=== PATIENT | male | born 1975 | race American Indian/Alaskan Native ===

== ENCOUNTER 2017-10-10 16:23 | Emergency (ER) | payer OTHER ==
[~2017-10-10] VITALS: Ht 180.3 cm; Wt 156.5 kg
--- OUTSIDE RECORDS SUMMARY | ~2017-10-10 | XMS | Clinical Summary ---
Demographics + + + | Address | [address] | | | [place] [address] | + + + | Home Phone | | + + + | Preferred Language | Unknown | + + + | Marital Status | Unmarried Domestic Partner | + + + | Denominational Affiliation | Unknown | + + + | Race | or | + + + | Ethnic Group | Not or | + + + Author + + + | Author | [facility] | + + + | Organization | [facility] | + + + | Address | Unknown | + + + | Phone | Unavailable | + + + Support +------+ +---------+ + | Name | Relationship | Address | Phone | +------+ +---------+ + ECON | Unknown | | +------+ +---------+ + Care Team Providers + +------+ + | Care Research Home Economist Name | Role | Phone | + +------+ + | No Pcp Per Patient | PP | Unavailable | + +------+ + Source Comments BETZAIDA is fully live on both [facility] Ambulatory and [facility] InPatient.[facility] Allergies Not on File Current Medications Not [...] | + + + Plan of Treatment + + + + + | Health Maintenance | Due Date | Last Done | Comments | + + + + + | INFLUENZA VACCINE | | | | | (FLU SHOT) | 7 | | | + + + + + Results Not on filefrom Last 3 Months"
[~2017-10-10 16:23] MED LIST: BACTRIM DS TAB1 EACH PO; LOSARTAN POTAS100 MG PO; ROSUVASTATIN CA20 MG PO
== END 2017-10-10 18:33 | disposition home or self-care (01) ==
LOC: ED 16:23
DX: S00.93XA Contusion of unspecified part of head, initial encounter (principal); Z79.899 Other long term (current) drug therapy; W22.8XXA Striking against or struck by other objects, initial encounter
CPT/HCPCS: 99283; G0390

== ENCOUNTER 2019-11-09 18:21 | Emergency (ER) | payer OTHER ==
--- OUTSIDE RECORDS SUMMARY | ~2019-11-09 | XMS | Clinical Summary ---
Demographics + + + | Address | [address] | | | [place] [address] | + + + | Home Phone | | + + + | Preferred Language | Unknown | + + + | Marital Status | Unmarried Domestic Partner | + + + | Alevism Affiliation | Unknown | + + + | Race | or | + + + | Ethnic Group | Not or | + + + Author + + + | Author | [facility] | + + + | Organization | [facility] | + + + | Address | Unknown | + + + | Phone | Unavailable | + + + Support + + +---------+ + | Name | Relationship | Address | Phone | + + +---------+ + | Crystal Lina | ECON | Unknown | | + + +---------+ + Care Team Providers + +------+ + | Care Application Technician Name | Role | Phone | + +------+ + | No Pcp Per Patient | PCP | Unavailable | + +------+ + Source Comments BETZAIDA is fully live on both [facility] Ambulatory and [facility] InPatient.[facility] Allergies Not on File Medications Not on file Active Problems Not on file Social History + +-------+ +--------+------+ | Tobacco Use | Types | Packs/Day | Years | Date | | | | | Used | | + +-------+ +--------+------+ | Never Assessed | | | | | + +-------+ +--------+------+ + + + | Sex Assigned at | Date Recorded | | | | + + + | Not on file | | + + + + + + + | Job Start Date | Occupation | Industry | + + + + | Not on file | Not on file | Not on file | + + + + + + + + | Travel History | Travel Start | Travel End | + + + + + + | No recent travel history available. | + + Last Filed Vital Signs Not on file Plan of Treatment + + + + + | Health Maintenance | Due Date | Last Done | Comments | + + + + + | Influenza (Flu) | | | | | vaccination (#1) | 9 | | | + + + + + | Pneumococcal | Aged Out | | No longer eligible | | vaccination | | | based on patient's | | | | | age to complete this | | | | | topic | + + + + + Results Not on filefrom Last 3 Months Insurance + +--------+ +--------+ + +------+ | Payer | Benefi | Subscriber | Effect | Phone | Address | Type | | | t Plan | ID | lissette | | | | | | / | | Dates | | | | | | Group | | | | | | + +--------+ +--------+ + +------+ | BLUE CROSS BLUE | REGENC | xxxxxxxxxxx | 06/26/20 | [phone] | [address] | PPO | | SHIELD | E BCBS | x | 10-Pre | 8 | [id number] | | | | | | sent | | [place], | | | | | | | | [place] | | | | | | | | [address] | | + +--------+ +--------+ + +------+ + +--------+ +--------+ + + | Guarantor Name | Accoun | Relation to | Date | Phone | Billing Address | | | t Type | Patient | of | | | | | | | | | | + +--------+ +--------+ + + | Tod Lyn V | Person | Self | [birth year] | [address] | | | al/Fam | | 1975 | [phone] | [place] [address] | | | miah | | | 0 (Home) | | + +--------+ +--------+ + + | Tod Lyn V | UFC | Self | [birth year] | | [address] | | | [address] | | 1975 | [phone] | [place] [address] | | | g Use | | | 0 (Home) | | | | Only | | | | | + +--------+ +--------+ + +"
--- OUTSIDE RECORDS SUMMARY | ~2019-11-09 | XMS | Encounter Summary ---
Demographics + + + | Address | [address] | | | [place] [address] | + + + | Home Phone | | + + + | Preferred Language | Unknown | + + + | Marital Status | Unmarried Domestic Partner | + + + | Shinto Affiliation | Unknown | + + + | Race | or | + + + | Ethnic Group | Not or | + + + Author + + + | Author | [facility] | + + + | Organization | [facility] | + + + | Address | Unknown | + + + | Phone | Unavailable | + + + Support + + +---------+ + | Name | Relationship | Address | Phone | + + +---------+ + | Crystal Lina | ECON | Unknown | | + + +---------+ + Care Team Providers + +------+ + | Care State Assessed Properties Director Name | Role | Phone | + +------+ + | No Pcp Per Patient | PCP | Unavailable | + +------+ + Encounter Details +--------+ + + + + | Date | Type | Department | Care Team | Description | +--------+ + + + + | 04/23/ | Telephone | [place] | Michael Solomon MD | | | 2011 | | Fertility | [address] | | | | | Consultants at [facility] | [place], [place] | | | | | [address] | [address] | | | | | Mailcode: [facility] | [phone] | | | | | [facility] | | | | | | and Healing, | | | | | | Building | | | | | | Floor [place], [place] | | | | | | [address] | | | | | | [phone] | | | +--------+ + + + + Social History + +-------+ +--------+------+ | Tobacco [...] recent travel history available. | + + documented as of this encounter Plan of Treatment Not on filedocumented as of this encounter Visit Diagnoses Not on filedocumented in this encounter"
--- OUTSIDE RECORDS SUMMARY | ~2019-11-09 | XMS | Encounter Summary ---
Demographics + + + | Address | [address] | | | [place] [address] | + + + | Home Phone | | + + + | Preferred Language | Unknown | + + + | Marital Status | | + + + | Scientology Affiliation | 1009 | + + + | Race | Unknown | + + + | Ethnic Group | Unknown | + + + Author + + + | Author | [facility] | | | and [place] | + + + | Organization | [facility] | | | and [place] | + + + | Address | Unknown | + + + | Phone | Unavailable | + + + Support + + +---------+ + | Name | Relationship | Address | Phone | + + +---------+ + | Fox Juarez | ECON | Unknown | | + + +---------+ + Care Team Providers + +------+ + | Care Spout Liner Helper Name | Role | Phone | + +------+ + PCP | Unavailable | + +------+ + Encounter Details +--------+ + + + + | Date | Type | Department | Care Team | Description | +--------+ + + + + | 07/08/ | Abstract | [facility] | DATA MIGRATION NAE | | | 2011 | | Conversion Location | SR | | | | | [phone] | | | +--------+ + + + [...] + + documented as of this encounter Last Filed Vital Signs + + + + + | Vital Sign | Reading | Time Taken | Comments | + + + + + | Blood Pressure | 116/76 | 06/12/2011 12:00 AM | | | | | PDT | | + + + + + | Pulse | - | - | | + + + + + | Temperature | - | - | | + + + + + | Respiratory Rate | - | - | | + + + + + | Oxygen Saturation | - | - | | + + + + + | Inhaled Oxygen | - | - | | | Concentration | | | | + + + + + | Weight | 180.5 kg (398 lb) | 06/12/2011 12:00 AM | | | | | PDT | | + + + + + | Height | 180.3 cm (5' 11") | 06/12/2011 12:00 AM | | | | | PDT | | + + + + + | Body Mass Index | 55.51 | 06/12/2011 12:00 AM | | | | | PDT | | + + + + + documented in this encounter Plan of Treatment Not on filedocumented as of this encounter Visit Diagnoses Not on filedocumented in this encounter
--- OUTSIDE RECORDS SUMMARY | ~2019-11-09 | XMS | Encounter Summary ---
Demographics + + + | Address | [address] | | | [place] [address] | + + + | Home Phone | | + + + | Preferred Language | Unknown | + + + | Marital Status | | + + + | Anabaptism Affiliation | 1009 | + + + | Race | Unknown | + + + | Ethnic Group | Unknown | + + + Author + + + | Author | [facility] | | | and [place] | + + + | Organization | [facility] | | | and [...] Team Providers + +------+ + | Care Meat Supervisor Name | Role | Phone | + +------+ + PCP | Unavailable | + +------+ + Encounter Details +--------+ + + + + | Date | Type | Department | Care Team | Description | +--------+ + + + + | 11/15/ | Hospital | [facility] | | | | 2008 | Encounter | MED CTR XRAY [address] | | | | | | [place] | | | | | | [place] [address] | | | | | | [phone] | | | +--------+ + + + [...]
--- OUTSIDE RECORDS SUMMARY | ~2019-11-09 | XMS | Encounter Summary ---
Demographics + + + | Address | [address] | | | [place] [address] | + + + | Home Phone | | + + + | Preferred Language | Unknown | + + + | Marital Status | | + + + | Denominational Affiliation | 1009 | + + + | Race | Unknown | + + + | Ethnic Group | Unknown | + + + Author + + + | Author | [facility] | | | and [place] | + + + | Organization | [facility] | | | [...] Team Providers + +------+ + | Care Judicial Law Clerk Name | Role | Phone | + +------+ + PCP | Unavailable | + +------+ + Encounter Details +--------+ + + + + | Date | Type | Department | Care Team | Description | +--------+ + + + + | 12/22/ | Hospital | [facility] GENERIC OP | [place] | [facility]LDER | | 2002 | Encounter | [address] | | | | | [address] | [place] [address] | | | | | [place] | [place] [address] | | | | | [address] | [phone] | | | | | [phone] | | | +--------+ + + + [...] filedocumented as of this encounter Visit Diagnoses + + | Diagnosis | + + | Pain in joint, shoulder region | + + documented in this encounter"
--- OUTSIDE RECORDS SUMMARY | ~2019-11-09 | XMS | Clinical Summary ---
Demographics + + + | Address | [address] | | | [place] [address] | + + + | Home Phone | | + + + | Preferred Language | Unknown | + + + | Marital Status | Single | + + + | Samaritan Affiliation | 1009 | + + + | Race | Unknown | + + + | Ethnic Group | Unknown | + + + Author + + + | Author | [facility] (Historical as of | | | 06-11-19) | + + + | Organization | [facility] (Historical as of | | | 06-11-19) | + + + | Address | Unknown | + + + | Phone | Unavailable | + + + Support + + +---------+ + | Name | Relationship | Address | Phone | + + +---------+ + | Fox Juarez | ECON | Unknown | | + + +---------+ + Care Team Providers + +------+ + | Care Manufacturing Quality Engineer Name | Role | Phone | + +------+ + | Darcy Boone | PP | | + +------+ + Allergies Not on File Current Medications Not on file Active Problems Not [...] on file | | + + + Plan of Treatment Not on file Results Not on filefrom Last 3 Months Insurance + +--------+ +------+-------+---------+ | Payer | Benefi | Subscriber | Type | Phone | Address | | | t Plan | ID | | | | | | / | | | | | | | Group | | | | | + +--------+ +------+-------+---------+ | [employer] | ODS | [id number] | | | | | | HEALTH | | | | | | | PLAN | | | | | + +--------+ +------+-------+---------+ | /[employer] | YELLOW | [id number] | | | | | PLANS | [place] | | | | | + +--------+ +------+-------+---------+ + +--------+ +--------+ + + | Guarantor Name | Accoun | Relation to | Date | Phone | Billing Address | | | t Type | Patient | of | | | | | | | | | | + +--------+ +--------+ + + | TOD LYN V | Person | Self | [birth year] | Home: | [address] | | | al/Fam | | 1975 | [phone] [place] | | | miah | | | [phone] | [address] | + +--------+ +--------+ + +"
--- OUTSIDE RECORDS SUMMARY | ~2019-11-09 | XMS | Encounter Summary ---
Demographics + + + | Address | [address] | | | [place] [address] | + + + | Home Phone | | + + + | Preferred Language | Unknown | + + + | Marital Status | | + + + | Pentecostal Affiliation | 1009 | + + + | Race | Unknown | + + + | Ethnic Group | Unknown | + + + Author + + + | Author | [facility] | | | and [place] | + + + | Organization | [facility] | | | and [...] Team Providers + +------+ + | Care Transportation Sales Consultant Name | Role | Phone | + +------+ + PCP | Unavailable | + +------+ + Encounter Details +--------+ + + + + | Date | Type | Department | Care Team | Description | +--------+ + + + + | 06/23/ | Hospital | [facility] | Franklin Garcia MD | | | 2010 | Encounter | MED CTR GENERIC OP | [address] [facility] | | | | | CONV DEPT [address] | [address], | | | | | [place], | [place] [address] | | | | | [place] [address] | [phone] | | | | | [phone] | | | +--------+ + + + [...] Not on filedocumented as of this encounter Procedures + +--------+ + + + | Procedure Name | Priori | Date/Time | Associated Diagnosis | Comments | | | ty | | | | + +--------+ + + + | BASIC METABOLIC | Routin | 06/23/2011 | | Results for this | | PANEL | e | 11:58 AM | | procedure are in the | | | | PDT | | results section. | + +--------+ + + + documented in this encounter Results Basic Metabolic Panel (06/23/2011 11:58 AM PDT) + + + + + + | Component | Value | Ref Range | Performed | Pathologist | | | | | At | Signature | + + + + + + | Glucose | 123 (H) | 70 - 109 mg/dL | [facility] | | | | | | [facility] | | | | | | [facility]ICAL | | | | | | C[facility] - | | | | | | LABORATORY | | + + + + + + | Calcium | 8.8 | 8.3 - 10.5 | [facility] | | | | | mg/dL | [facility] | | | | | | [facility]ICAL | | | | | | CENTER - | | | | | | LABORATORY | | + + + + + + | BUN | 10 | 7 - 18 mg/dL | [facility] | | | | | | [facility] | | | | | | MEDICAL | | | | | | CENTER - | | | | | | LABORATORY | | + + + + + + | Creatinine | 0.80 | 0.60 - 1.30 | [facility] | | | | | mg/dL | [facility] | | | | | | MEDICAL | | | | | | CENTER - | | | | | | LABORATORY | | + + + + + + | Estimated | >60Comment: For | >60 mL/min/A | [facility] | | | GFR | -Americans, | | [facility] | | | | please multiply the | | MEDICAL | | | | result by 1.210 | | CENTER - | | | | This is an estimated | | LABORATORY | | | | GFR and is based on | | | | | | a standard body | | | | | | mass and serum | | | | | | creatinine | | | | + + + + + + | BUN/Creatin | 12.5 | 12 - 20 | [facility] | | | ine Ratio | | | [facility] | | | | | | MEDICAL | | | | | | CENTER - | | | | | | LABORATORY | | + + + + + + | Na | 137 | 136 - 149 mEq/L | [facility] | | | | | | [facility] | | | | | | MEDICAL | | | | | | CENTER - | | | | | | LABORATORY | | + + + + + + | K | 3.9 | 3.5 - 5.1 mEq/l | [facility] | | | | | | [facility] | | | | | [facility] | | | | | | [facility] - | | | | | | LABORATORY | | + + + + + + | Cl | 104 | 98 - 109 mEq/l | [facility] | | | | | | [facility] | | | | | | MEDICAL | | | | | | CENTER - | | | | | | LABORATORY | | + + + + + + | CO2 | 24 | 24 - 31 mEq/L | [facility] | | | | | | [facility] | | | | | | MEDICAL | | | | | | CENTER - | | | | | | LABORATORY | | + + + + + + | Anion Gap | 12.9 | 6.0 - 17.0 | [facility] | | | | | | [facility] | | | | | | MEDICAL | | | | | | CENTER - | | | | | | LABORATORY | | + + + + + + + + | Specimen | + + | | + + + + + + + | Performing | Address | City/State/Zipcode | Phone Number | | Organization | | | | + + + + + | [facility] | [address] | [place], [place] | [phone] | | [facility] | | [address] | | | - LABORATORY | | | | + + + + + | [facility] | [address] | [place], [place] | | | [facility] | | [address] | | | - LABORATORY | | | | + + + + + documented in this encounter Visit Diagnoses Not on filedocumented in this encounter"
--- OUTSIDE RECORDS SUMMARY | ~2019-11-09 | XMS | Encounter Summary ---
Demographics + + + | Address | [address] | | | [place] [address] | + + + | Home Phone | | + + + | Preferred Language | Unknown | + + + | Marital Status | Unmarried Domestic Partner | + + + | Mandaeism Affiliation | Unknown | + + + | Race | or | + + + | Ethnic Group | Not or | + + + Author + + + | Author | [facility] | + + + | Organization | [facility] | + + + | Address | Unknown | + + + | Phone | Unavailable | + + + Support + + +---------+ + | Name | Relationship | Address | Phone | + + +---------+ + | Crystal Lina | ECON | Unknown | | + + +---------+ + Care Team Providers + +------+ + | Care Disulfurizer Tender Name | Role | Phone | + +------+ + | No Pcp Per Patient | PCP | Unavailable | + +------+ + Encounter Details +--------+ + + + + | Date | Type | Department | Care Team | Description | +--------+ + + + + | 04/15/ | Business Development Executive | [place] | Michael Solomon MD | Special screening | | 2011 | | Fertility | [address] | examination for | | | | Consultants at [facility] | [place], [place] | other specified | | | | [address] | [address] | viral diseases; | | | | Mailcode: CH10F | [phone] | Screening | | | | [facility] | | examination for | | | | and Healing, | | venereal disease; | | | | Building | | Fertility testing | | | | Floor [place], [place] | | | | | | [address] | | | | | | [phone] | | | +--------+ + + + [...] | + +--------+ + + + | SEMEN ANALYSIS | Routin | 04/21/2012 | Fertility testing | Results for this | | CLINICAL REPORT - | e | 7:55 AM | | procedure are in the | | ANDROLOGY LAB | | PDT | | results section. | + +--------+ + + + documented in this encounter Results SEMEN ANALYSIS CLINICAL REPORT - ANDROLOGY LAB (04/21/2012 7:55 AM PDT) + + + + + + | Component | Value | Ref Range | Performed | Pathologist | | | | | At | Signature | + + + + + + | PARTNER | Crystal Pleninger | Cut off normal | [facility] | | | | | values from the | OGY LAB | | | | | WHO 3rd | | | | | | Edition | | | + + + + + + | TIME | 840 | | [facility] | | | COMPLETED | | | OGY LAB | | + + + + + + | VOLUME, | 4 | 2 ml or more | [facility] | | | SEMEN | | | OGY LAB | | + + + + + + | COUNT | 103 | 20 million/ml | [facility] | | | | | or more | OGY LAB | | + + + + + + | MOTILITY % | 68 | 50 % or more | [facility] | | | | | | OGY LAB | | + + + + + + | TOTAL | 280.2 | 20 million or | [facility] | | | MOTILE | | more | OGY LAB | | + + + + + + | FORWARD | 3 | 2 - 4 | [facility] | | | PROGRESSION | | | OGY LAB | | + + + + + + | VISCOSITY, | 1 | 1 - 2 | [facility] | | | SEMEN | | | OGY LAB | | + + + + + + | PH, SEMEN | 8 | 7.2 | [facility] | | | | | | OGY LAB | | + + + + + + | NORMAL | 34 | 30 % or more | [facility] | | | MORPHOLOGY | | | OGY LAB | | | % | | | | | + + + + + + | ROUND CELLS | 2 | hpf | [facility] | | | | | | OGY LAB | | + + + + + + | AGGLUTINATI | 0 | 0 - 1 0=none, | [facility] | | | ON | | 1=mild, | OGY LAB | | | | | 2=significant, | | | | | | 3=severe | | | + + + + + + | ABSTINENCE | 3 | days | [facility] | | | DURATION | | | OGY LAB | | + + + + + + + + | Specimen | + + | Semen | + + + + + + + | Performing | Address | City/State/Zipcode | Phone Number | | Organization | | | | + + + + + | [facility] | [address] | [place] [address] | | | | Tenth Floor | | | + + + + + HEPATITIS C AB W/CONFIRMATION REFLEX PCR (04/21/2012 7:55 AM PDT) + + + + + + | Component | Value | Ref Range | Performed | Pathologist | | | | | At | Signature | + + + + + + | HEPATITIS C | NegativeComment: | Negative | [facility] | | | AB | Reference Range: | | [facility] | | | | Negative | | LABORATORY | | + + + + + + + + | Specimen | + + | Blood - Blood | + + + + + + + | Performing | Address | City/State/Zipcode | Phone Number | | Organization | | | | + + + + + | [facility] | [address] | [place] [address] | | | LABORATORY | | | | + + + + + HEPATITIS B SURFACE AG, SERUM (04/21/2012 7:55 AM PDT) + + + + + + | Component | Value | Ref Range | Performed | Pathologist | | | | | At | Signature | + + + + + + | HEPATITIS B | Negative | Negative | [facility] | | | SURFACE | | | [facility] | | | AG, SERUM | | | LABORATORY | | + + + + + + + + | Specimen | + + | Blood - Blood | + + + + + | Narrative | Performed At | + + + | [facility] | [facility] | | [place] [address] | REGIONAL | | [place] [address] | LABORATORY | + + + + + + + + | Performing | Address | City/State/Zipcode | Phone Number | | Organization | | | | + + + + + | [facility] | [address] | [place] [address] | | | LABORATORY | | | | + + + + + RPR SERUM (04/21/2012 7:55 AM PDT) + + + + + + | Component | Value | Ref Range | Performed | Pathologist | | | | | At | Signature | + + + + + + | RPR SRM | Non-Reactive | | [facility] | | | QUAL | | | [facility] | | | | | | LABORATORY | | + + + + + + + + | Specimen | + + | Blood - Blood | + + + + + | Narrative | Performed At | + + + | [facility] | [facility] | | [place] [address] [facility] | REGIONAL | | [place] [address] | LABORATORY | + + + + + + + + | Performing | Address | City/State/Zipcode | Phone Number | | Organization | | | | + + + + + | [facility] | [address] | [place] [address] | | | LABORATORY | | | | + + + + + HIV-1,2 AB/HIV-1 P24 AG SCRN, SERUM (04/21/2012 7:55 AM PDT) + + + + + + | Component | Value | Ref Range | Performed | Pathologist | | | | | At | Signature | + + + + + + | HIV-1,2 | NonreactiveComment: | | [facility] | | | AB/HIV-1 | Reference Range: | | DEPARTMENT | | | P24 AG | Non-Reactive: | | OF | | | SCREEN | HIV-1 p24 Ag | | PATHOLOGY | | | | and HIV-1,2 Ab | | | | | | | | | | | | not detected. | | | | | | Presumptive Reactive: | | | | | | Presumptive | | | | | | evidence of HIV-1 p24 Ag | | | | | | and/or HIV-1,2 Ab; | | | | | | Sample sent for | | | | | | confirmatory assay. | | | | | | However, the RT-PCR | | | | | | test for HIV is more | | | | | | sensitive and | | | | | | recommended for either | | | | | | confirmation or early | | | | | | detection. | | | | | | Performance has not been | | | | | | established for the use | | | | | | of cadaveric | | | | | | specimens, or the use of | | | | | | body fluids other than | | | | | | human serum or | | | | | | plasma. False | | | | | | positive results may | | | | | | occur in . | | | | + + + + + + + + | Specimen | + + | Blood - Blood | + + + + + + + | Performing | Address | City[facility]State[facility] | Phone Number | | Organization | | | | + + + + + | [facility] | [address] | [place] [address] | | | PATHOLOGY | [address] | | | + + + + + documented in this encounter Visit Diagnoses + + | Diagnosis | + + | Special screening examination for other specified viral diseases | + + | Screening examination for venereal disease | + + | Fertility testing | + + documented in this encounter"
--- OUTSIDE RECORDS SUMMARY | ~2019-11-09 | XMS | Clinical Summary ---
Demographics + + + | Address | [address] | | | [place] [address] | + + + | Home Phone | | + + + | Preferred Language | Unknown | + + + | Marital Status | | + + + | Hoahaoism Affiliation | 1009 | + + + | Race | Unknown | + + + | Ethnic Group | Unknown | + + + Author + + + | Author | [facility] | | | and [place] | + + + | Organization | [facility] | | | [...] Team Providers + +------+ + | Care Supervisor Cartography Name | Role | Phone | + +------+ + PCP | Unavailable | + +------+ + Allergies No Known Allergies Medications + + + +---------+------+------+-------+ | Medication | Sig | Dispensed | Refills | Star | End | Statu | | | | | | t | Date | s | | | | | | Date | | | + + + +---------+------+------+-------+ | METOPROLOL | TABS - ONE DAILY | | 0 | 09/1 | | Activ | | TARTRATE | | | | 4/20 | | e | | | | | | 12 | | | + + + +---------+------+------+-------+ | METFORMIN HCL PO | TABS - TWO DAILY | | 0 | 09/1 | | Activ | | | | | | 4/20 | | e | | | | | | 12 | | | + + + +---------+------+------+-------+ | LISINOPRIL PO | TABS - ONE DAILY | | 0 | 09/1 | | Activ | | | | | | 4/20 | | e | | | | | | 12 | | | + + + +---------+------+------+-------+ | Aspirin (EASPRIN | TBEC - ONE DAILY | | 0 | 09/1 | | Activ | | PO) | | | | 4/20 | | e | | | | | | 12 | | | + + + +---------+------+------+-------+ | Olmesartan | TABS - ONE DAILY | | 0 | 09/1 | | Activ | | Medoxomil (BENICAR | | | | 4/20 | | e | | PO) | | | | 12 | | | + + + +---------+------+------+-------+ | AMOXAPINE | TABS - ONE DAILY | | 0 | 09/1 | | Activ | | | | | | 4/20 | | e | | | | | | 12 | | | + + + +---------+------+------+-------+ | Colesevelam HCl | TABS - SIX DAILY | | 0 | 09/1 | | Activ | | (WELCHOL PO) | | | | 4/20 | | e | | | | | | 12 | | | + + + +---------+------+------+-------+ | LORATADINE PO | TABS - ONE DAILY | | 0 | 09/1 | | Activ | | | | | | 4/20 | | e | | | | | | 12 | | | + + + +---------+------+------+-------+ | FLUTICASONE | CREA - DAILY | | 0 | 09/1 | | Activ | | PROPIONATE EX | | | | 02/12 | | e | | | | | | 12 | | | + + + +---------+------+------+-------+ Active Problems + + + | Problem | Noted Date | + + + | 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
--- OUTSIDE RECORDS SUMMARY | ~2019-11-09 | XMS | Encounter Summary ---
Demographics + + + | Address | [address] | | | [place] [address] | + + + | Home Phone | | + + + | Preferred Language | Unknown | + + + | Marital Status | | + + + | Congregation Affiliation | 1009 | + + + | Race | Unknown | + + + | Ethnic Group | Unknown | + + + Author + + + | Author | [facility] | | | and [place] | + + + | Organization | [facility] | | | [...] Team Providers + +------+ + | Care [place] Manager Name | Role | Phone | + +------+ + PCP | Unavailable | + +------+ + Encounter Details +--------+ + + + + | Date | Type | Department | Care Team | Description | +--------+ + + + + | 09/14/ | Hospital | [facility] | | | | 2005 | Encounter | MED CTR XRAY [address] | | | | | | [address] | | | | | | [place] [address] | | | | | | [phone] | | | +--------+ + + + [...]
--- OUTSIDE RECORDS SUMMARY | ~2019-11-09 | XMS | Encounter Summary ---
Demographics + + + | Address | [address] | | | [place] [address] | + + + | Home Phone | | + + + | Preferred Language | Unknown | + + + | Marital Status | | + + + | Confucianism Affiliation | 1009 | + + + | Race | Unknown | + + + | Ethnic Group | Unknown | + + + Author + + + | Author | [facility] | | | and [place] | + + + | Organization | [facility] | | [...] Team Providers + +------+ + | Care Rib Chopper Name | Role | Phone | + +------+ + PCP | Unavailable | + +------+ + Encounter Details +--------+ + + + + | Date | Type | Department | Care Team | Description | +--------+ + + + + | 09/14/ | Hospital | [facility] | | | | 2005 | Encounter | MED CTR XRAY [address] | | | | | | [address] | | | | | | [place] [address] | | | | | | [phone] | | | +--------+ + + + [...]
--- OUTSIDE RECORDS SUMMARY | ~2019-11-09 | XMS | Clinical Summary ---
Demographics + + + | Address | [address] | | | [place] [address] | + + + | Home Phone | | + + + | Preferred Language | Unknown | + + + | Marital Status | Unmarried Domestic Partner | + + + | Yazdanism Affiliation | Unknown | + + + [...] Team Providers + +------+ + | Care Net Maker Name | Role | Phone | + +------+ + | No Pcp Per Patient | PCP | Unavailable | + +------+ + Source Comments BETZAIDA is fully live on both [facility] Ambulatory and [facility] InPatient.[facility] Allergies Not on File Medications Not on [...] | [facility] | xxxxxxxxxxx | 06/26/20 | [phone] | [address] | PPO | | SHIELD | E BCBS | x | 10-Pre | 8 | [address] | | | | | | sent | | [place], | | | | | | | | [place] | | | | | | | | [address] | | + +--------+ +--------+ + +------+ [...] | 1975 | [phone] | [place] [address] | | | miah | | | 0 (Home) | | + +--------+ +--------+ + + | Tod Lyn V | UFC | Self | [birth year] | [address] | | | [place] | | 1975 | [phone] | [place] [address] | | | g Use | | | 0 (Home) | | | | Only | | | | | + +--------+ +--------+ + +"
--- OUTSIDE RECORDS SUMMARY | ~2019-11-09 | XMS | Encounter Summary ---
Demographics + + + | Address | [address] | | | [place] [address] | + + + | Home Phone | | + + + | Preferred Language | Unknown | + + + | Marital Status | | + + + | Jainism Affiliation | 1009 | + + + | Race | Unknown | + + + | Ethnic Group | Unknown | + + + Author + + + | Author | [facility] | | | and [place] | + + + | Organization | [facility] | | | and [...] Team Providers + +------+ + | Care Faculty Administrator Name | Role | Phone | + +------+ + PCP | Unavailable | + +------+ + Encounter Details +--------+ + + + + | Date | Type | Department | Care Team | Description | +--------+ + + + + | 07/15/ | [facility] | [facility] | Franklin Garcia MD | | | 2010 | Encounter | MED CTR MP INTRA OP | [address] [facility] | | | | | [address] | [address], | | | | | [place] | [place] [address] | | | | | [address] | [phone] | | | | | [phone] | | | +--------+ + + + [...]
--- OUTSIDE RECORDS SUMMARY | ~2019-11-09 | XMS | Encounter Summary ---
Demographics + + + | Address | [address] | | | [place] [address] | + + + | Home Phone | | + + + | Preferred Language | Unknown | + + + | Marital Status | | + + + | Rastafari Affiliation | 1009 | + + + | Race | Unknown | + + + | Ethnic Group | Unknown | + + + Author + + + | Author | [facility] | | | and [place] | + + + | Organization | [facility] | | | and [...] Team Providers + +------+ + | Care Fitness Assistant Name | Role | Phone | + +------+ + PCP | Unavailable | + +------+ + Encounter Details +--------+ + + + + | Date | Type | Department | Care Team | Description | +--------+ + + + + | 12/22/ | Hospital | [facility] GENER[facility] | Cast[place] | JOINT PAIN-SHLDER | | 2002 | Encounter | [address] | [address] | | | | | [address] | [place] [address] | | | | | [place] | [place] [address] | | | | | [address] | [phone] | | | | | [phone] | | | +--------+ + + + [...]
--- OUTSIDE RECORDS SUMMARY | ~2019-11-09 | XMS | Encounter Summary ---
Demographics + + + | Address | [address] | | | [place] [address] | + + + | Home Phone | | + + + | Preferred Language | Unknown | + + + | Marital Status | | + + + | Amish Affiliation | 1009 | + + + | Race | Unknown | + + + | Ethnic Group | Unknown | + + + Author + + + | Author | [facility] | | | and [place] | + + + | Organization | [facility] | | [...] Team Providers + +------+ + | Care Melter Supervisor Electric Arc Furnace Name | Role | Phone | + +------+ + PCP | Unavailable | + +------+ + Encounter Details +--------+ + + + + | Date | Type | Department | Care Team | Description | +--------+ + + + + | 07/15/ | [facility] | [facility] | Franklin Garcia MD | | | 2010 | Encounter | MED CTR MP INTRA OP | [address] [facility] | | | | | [address] | [address], | | | | | [place] | [place] [address] | | | | | [address] | [phone] | | | | | [phone] | | | +--------+ + + + [...]
--- OUTSIDE RECORDS SUMMARY | ~2019-11-09 | XMS | Encounter Summary ---
Demographics + + + | Address | [address] | | | [place] [address] | + + + | Home Phone | | + + + | Preferred Language | Unknown | + + + | Marital Status | Unmarried Domestic Partner | + + + | Gnosticist Affiliation | Unknown | + + + | Race | or | + + + | Ethnic Group | Not or | + + + Author + + + | Author | [facility] [facility] | + + + | Organization | [facility] | + + + | Address | Unknown | + + + | Phone | Unavailable | + + + Support + + +---------+ + | Name | Relationship | Address | Phone | + + +---------+ + | Crystal Lina | ECON | Unknown | | + + +---------+ + Care Team Providers + +------+ + | Care Director Of Video Analytics Name | Role | Phone | + +------+ + | No Pcp Per Patient | PCP | Unavailable | + +------+ + Encounter Details +--------+ + + + + | Date | Type | Department | Care Team | Description | +--------+ + + + + | 04/23/ | Telephone | [facility] | Michael Solomon MD | | | 2011 | | Fertility | [address] | | | | | Consultants at [facility] | [place], [place] | | | | | [address] | [address] | | | | | Mailcode: [facility] | [phone] | | | | | [facility] | | | | | | and Healing, | | | | | | Building | | | | | | Floor [place], [place] | | | | | | [address] | | | | | | [phone] | | | +--------+ + + + [...]
--- OUTSIDE RECORDS SUMMARY | ~2019-11-09 | XMS | Encounter Summary ---
Demographics + + + | Address | [address] | | | [place] [address] | + + + | Home Phone | | + + + | Preferred Language | Unknown | + + + | Marital Status | Unmarried Domestic Partner | + + + | Bahai Affiliation | Unknown | + + + | Race | or | + + + | Ethnic Group | Not or | + + + Author + + + | Author | [facility] | + + + | Organization | [facility] | + + + | Address | Unknown | + + + | Phone | Unavailable | + + + Support + + +---------+ + | Name | Relationship | Address | Phone | + + +---------+ + | Crystal Lina | ECON | Unknown | | + + +---------+ + Care Team Providers + +------+ + | Care Central Supply Aide Name | Role | Phone | + +------+ + | No Pcp Per Patient | PCP | Unavailable | + +------+ + Encounter Details +--------+------+ + + + | Date | Type | Department | Care Team | Description | +--------+------+ + + + | 04/21/ | Lab | Laboratory at [facility] | | Special screening | | 2011 | | [address] | | examination for | | | | [place], [place] | | other specified | | | | [address] | | viral diseases; | | | | [phone] | | Screening | | | | | | examination for | | | | | | venereal disease | +--------+------+ + + + Social History + +-------+ [...] | + +--------+ + + + | HIV-1,2 AB/HIV-1 P24 | Routin | 04/21/2012 | Special screening | Results for this | | AG SCRN | e | 7:55 AM | examination for | procedure are in the | | | | PDT | other specified | results section. | | | | | viral diseases | | + +--------+ + + + | RPR SERUM | Routin | 04/21/2012 | Screening | Results for this | | | e | 7:55 AM | examination for | procedure are in the | | | | PDT | venereal disease | results section. | + +--------+ + + + | HEPATITIS B SURFACE | Routin | 04/21/2012 | Special screening | Results for this | | AG, SERUM | e | 7:55 AM | examination for | procedure are in the | | | | PDT | other specified | results section. | | | | | viral diseases | | + +--------+ + + + | HEPATITIS C VIRUS | Routin | 04/21/2012 | Special screening | Results for this | | W/CONFIRMATION | e | 7:55 AM | examination for | procedure are in the | | | | PDT | other specified | results section. | | | | | viral diseases | | + +--------+ + + + documented in this encounter Results HEPATITIS C AB W/CONFIRMATION REFLEX PCR (04/21/2012 [...] + + + | [facility] | [address] | [place] [address] | | | LABORATORY | | | [...] Will | [facility] | | [place] [address] | REGIONAL | | [place] [address] | LABORATORY | + + + + + + + + | Performing | Address | City/State/Zipcode | Phone Number | | Organization | | | | + + + + + | [facility] | [address] | [place] [address] | | | LABORATORY | | | [...] At | + + + | [facility] | [place] | | [place] [address] [address] [facility] | REGIONAL | | [place] [address] | LABORATORY | + + + + + + + + | Performing | Address | City/State/Zipcode | Phone Number | | Organization | | | | + + + + + | [facility] | [address] | [place] [address] | | | LABORATORY | | | [...] | + + + + + | [facility] | [address] | [place] [address] | | | PATHOLOGY | [address] | | | + + + + + documented in this encounter Visit Diagnoses + + | Diagnosis | + + | Special screening examination for other specified viral diseases | + + | Screening examination for venereal disease | + + documented in this encounter"
--- OUTSIDE RECORDS SUMMARY | ~2019-11-09 | XMS | Encounter Summary ---
Demographics + + + | Address | [address] | | | [place] [address] | + + + | Home Phone | | + + + | Preferred Language | Unknown | + + + | Marital Status | Unmarried Domestic Partner | + + + | Anglican Affiliation | Unknown | + + + | Race | or | + + + | Ethnic Group | Not or | + + + Author + + + | Author | [facility] [employer] | + + + | Organization | [facility] | + + + | Address | Unknown | + + + | Phone | Unavailable | + + + Support + + +---------+ + | Name | Relationship | Address | Phone | + + +---------+ + | Crystal Lina | ECON | Unknown | | + + +---------+ + Care Team Providers + +------+ + | Care Web Engineer Name | Role | Phone | + +------+ + | No Pcp Per Patient | PCP | Unavailable | + +------+ + Encounter Details +--------+ + + + + | Date | Type | Department | Care Team | Description | +--------+ + + + + | 04/23/ | MyChart | [facility] | Michael Solomon MD | Your results | | 2011 | Encounter | Fertility | [address] | | | | | Consultants at [facility] | [place], [place] | | | | | [address] | [address] | | | | | Mailcode: [facility] | [phone] | | | | | [facility] | | | | | | and [place], | | | | | | Building | | | | | | Floor [place], [place] | | | | | | [address] | | | | | | [phone] | | | +--------+ + + + [...]
--- OUTSIDE RECORDS SUMMARY | ~2019-11-09 | XMS | Encounter Summary ---
Demographics + + + | Address | [address] | | | [place] [address] | + + + | Home Phone | | + + + | Preferred Language | Unknown | + + + | Marital Status | Unmarried Domestic Partner | + + + | Temple Affiliation | Unknown | + + + | Race | or | + + + | Ethnic Group | Not or | + + + Author + + + | Author | [facility] [employer] [facility] | + + + | Organization | [facility] | + + + | Address | Unknown | + + + | Phone | Unavailable | + + + Support + + +---------+ + | Name | Relationship | Address | Phone | + + +---------+ + | Crystal Lina | ECON | Unknown | | + + +---------+ + Care Team Providers + +------+ + | Care Custom Home Installer Name | Role | Phone | + +------+ + | No Pcp Per Patient | PCP | Unavailable | + +------+ + Encounter Details +--------+------+ + + + | Date | Type | Department | Care Team | Description | +--------+------+ + + + | 04/21/ | Lab | Laboratory at [facility] | | Special screening | | 2011 | | [address] | | examination for | | | | [place], [place] | | other specified | | | | [address] | | viral diseases; | | | | [phone] | | Screening | | | | [...] + + + | [facility] | [address] | [place] [address] | | | LABORATORY | | | [...] Will | WILL | | [place] [address] | REGIONAL | | [place] [address] | LABORATORY | + + + + + + + + | Performing | Address | City/State/Zipcode | Phone Number | | Organization | | | | + + + + + | [facility] | [address] | [place] [address] | | | LABORATORY | | | [...] At | + + + | [facility] | [place] | | [place] [address] [address] [facility] | REGIONAL | | [place] [address] | LABORATORY | + + + + + + + + | Performing | Address | City/State/Zipcode | Phone Number | | Organization | | | | + + + + + | [facility] | [address] | [place] [address] | | | LABORATORY | | | [...] | + + + + + | [facility] | [address] | [place] [address] | | | PATHOLOGY | [address] | | | + + + + + documented in this encounter Visit Diagnoses + + | Diagnosis | + + | Special screening examination for other specified viral diseases | + + | Screening examination for venereal disease | + + documented in this encounter"
--- OUTSIDE RECORDS SUMMARY | ~2019-11-09 | XMS | Encounter Summary ---
Demographics + + + | Address | [address] | | | [place] [address] | + + + | Home Phone | | + + + | Preferred Language | Unknown | + + + | Marital Status | | + + + | Yazidi Affiliation | 1009 | + + + | Race | Unknown | + + + | Ethnic Group | Unknown | + + + Author + + + | Author | [facility] | | | and [place] | + + + | Organization | [facility] | | | [...] Team Providers + +------+ + | Care Quality Assurance Consultant Name | Role | Phone | [...] | SR | | | | | [phone] | | | +--------+ + + + [...]
--- OUTSIDE RECORDS SUMMARY | ~2019-11-09 | XMS | Encounter Summary ---
Demographics + + + | Address | [address] | | | [place] [address] | + + + | Home Phone | | + + + | Preferred Language | Unknown | + + + | Marital Status | Unmarried Domestic Partner | + + + | Lutheran Affiliation | Unknown | + + + | Race | or | + + + | Ethnic Group | Not or | + + + Author + + + | Author | [facility] [employer] [facility] | + + + | Organization | [facility] | + + + | Address | Unknown | + + + | Phone | Unavailable | + + + Support + + +---------+ + | Name | Relationship | Address | Phone | + + +---------+ + | Crystal Lina | ECON | Unknown | | + + +---------+ + Care Team Providers + +------+ + | Care Business Development Manager Name | Role | Phone | + +------+ + | No Pcp Per Patient | PCP | Unavailable | + +------+ + Encounter Details +--------+ + + + + | Date | Type | Department | Care Team | Description | +--------+ + + + + | 04/23/ | MyChart | [facility] | Michael Solomon MD | Your results | | 2011 | Encounter | Fertility | [address] | | | | | Consultants at [facility] | [place], [place] | | | | | [address] | [address] | | | | | Mailcode: [facility] | [phone] | | | | | [facility] | | | | | | and [place], | | | | | | Building | | | | | | Floor [place], [place] | | | | | | [address] | | | | | | [phone] | | | +--------+ + + + [...]
--- OUTSIDE RECORDS SUMMARY | ~2019-11-09 | XMS | Encounter Summary ---
Demographics + + + | Address | [address] | | | [place] [address] | + + + | Home Phone | | + + + | Preferred Language | Unknown | + + + | Marital Status | | + + + | Christian Affiliation | 1009 | + + + [...] Team Providers + +------+ + | Care Suction Drum Drier Operator Name | Role | Phone | + +------+ + PCP | Unavailable | + +------+ + Encounter Details +--------+ + + + + | Date | Type | Department | Care Team | Description | +--------+ + + + + | 05/17/ | Hospital | [facility] | Conversion | Left shoulder pain, | | 2018 | Encounter | [facility] | Transaction, | unspecified | | | | [address] | Provider Unknown | chronicity | | | | [facility] | | | | | | [address] | (Fax) | | | | | [phone] | | | +--------+ + + + [...] + + documented as of this encounter Medications at Time of Discharge + + + +---------+ + + | Medication | Sig | Dispensed | Refills | Start | End Date | | | | | | Date | | + + + +---------+ + + | AMOXAPINE | TABS - ONE DAILY | | 0 | 07/09/20 | | | | | | | 12 | | + + + +---------+ + + | Aspirin (EASPRIN | TBEC - ONE DAILY | | 0 | 07/09/20 | | | PO) | | | | 12 | | + + + +---------+ + + | Colesevelam HCl | TABS - SIX DAILY | | 0 | 07/09/20 | | | (WELCHOL PO) | | | | 12 | | + + + +---------+ + + | FLUTICASONE | CREA - DAILY | | 0 | 07/09/20 | | | PROPIONATE EX | | | | 12 | | + + + +---------+ + + | LISINOPRIL PO | TABS - ONE DAILY | | 0 | 07/09/20 | | | | | | | 12 | | + + + +---------+ + + | LORATADINE PO | TABS - ONE DAILY | | 0 | 09/14/20 | | | | | | | 12 | | + + + +---------+ + + | METFORMIN HCL PO | TABS - TWO DAILY | | 0 | 09/14/20 | | | | | | | 12 | | + + + +---------+ + + | METOPROLOL | TABS - ONE DAILY | | 0 | 09/14/20 | | | TARTRATE | | | | 12 | | + + + +---------+ + + | Olmesartan | TABS - ONE DAILY | | 0 | 09/14/20 | | | Medoxomil (BENICAR | | | | 12 | | | PO) | | | | | | + + + +---------+ + + documented as of this encounter Plan of Treatment Not on filedocumented as of this encounter Procedures + +--------+ + + + | Procedure Name | Priori | Date/Time | Associated Diagnosis | Comments | | | ty | | | | + +--------+ + + + | MRI SHOULDER LEFT WO | Routin | 05/17/2019 | | Results for this | | CONTRAST | e | 8:01 PM | | procedure are in the | | | | PDT | | results section. | + +--------+ + + + documented in this encounter Results MRI Shoulder Left wo Contrast (05/17/2019 8:01 PM PDT) + + | Specimen | + + | | + + + + + | Impressions | Performed At | + + + | *Insertional high-grade partial thickness articular surface tear of | | | the subscapularis tendon. *Partial thickness tear of the | | | supraspinatus and infraspinatus tendon as detailed above. | | | *Subacromial/subdeltoid bursitis. *Advanced acromioclavicular | | | osteoarthritis. *Tear of the long head of the biceps tendon. | | | *Superior labrum tear (SLAP tear) extending to the posterior labrum up | | | to 8:00 o'clock position. *Mild glenohumeral osteoarthritis. | | | Small glenohumeral joint effusion. *Additional findings as detailed | | | above. Signed by: Ryanne Lincoln, Pushpender Sign Date/Time: | | | 05/18/2019 2:15 PM | | + + + + + + | Narrative | Performed At | + + + | MRI LEFT SHOULDER WITHOUT CONTRAST CLINICAL INFORMATION: Left | | | shoulder pain COMPARISON: None PROCEDURE: Multiplanar | | | multisequence MRI of the left shoulder without intravenous contrast. | | | FINDINGS: Bone Marrow: There is subtle marrow edema like signal in | | | lateral end of the clavicle and acromion, probably reactive. Joint | | | Space/Capsule: Small glenohumeral joint effusion. | | | Acromion/Supraspinatus Outlet: Subtle increased signal within the | | | subacromial/subdeltoid bursa. Acromioclavicular Joint: Advanced | | | acromioclavicular osteoarthritis with hypertrophic changes causing | | | mass effect on supraspinatus tendon at musculotendinous junction. | | | Rotator Cuff: *Supra/Infraspinatus: Moderate supraspinatus and | | | infraspinatus tendinosis. Small insertional partial-thickness | | | articular surface tear of the anterior portion of the supraspinatus | | | tendon, image 12/series 10. There is bursal surface fraying at | | | musculotendinous junction. Partial-thickness bursal surface tear of | | | the posterior portion of the supraspinatus/anterior portion of | | | infraspinatus at musculotendinous junction, measuring approximately | | | 1.2 cm anteroposteriorly, image 7/series 9. Probable interstitial | | | extension of the tear with edema at musculotendinous junction of the | | | infraspinatus. Small insertional partial-thickness concealed | | | interstitial tear of the infraspinatus tendon, image 9/series 10. | | | *Teres Minor: Normal. *Subscapularis: Moderate tendinosis. | | | Insertional high-grade partial-thickness articular surface tears. | | | Biceps/Rotator Interval: Tear of the long head of the biceps tendon. | | | The long head of biceps tendon is not visualized in superior portion | | | of the bicipital groove. Glenoid Labrum: Superior labrum tear (slap | | | tear) extending to the posterior labrum up to 8:00 o'clock position. | | | Small posterior paralabral cysts. Articular Cartilage: Mild | | | glenohumeral osteoarthritis with surface irregularity and partial | | | thickness chondral loss involving humeral head and glenoid. Small | | | focal area of full-thickness glenoid chondral loss, image 10/series | | | 10. Miscellaneous: No enlarged axillary lymph nodes. | | + + + + + | Procedure Note | + + | Lonny Lopez Conversion - 06/07/2019 4:01 PM PDT MRI LEFT SHOULDER WITHOUT CONTRAST | | CLINICAL INFORMATION: | | Left shoulder pain | | COMPARISON: | | None | | PROCEDURE: | | Multiplanar multisequence MRI of the left shoulder without intravenous | | contrast. | | FINDINGS: | | Bone Marrow: There is subtle marrow edema like signal in lateral end of | | the clavicle and acromion, probably reactive. | | Joint Space/Capsule: Small glenohumeral joint effusion. | | Acromion/Supraspinatus Outlet: Subtle increased signal within the | | subacromial/subdeltoid bursa. | | Acromioclavicular Joint: Advanced acromioclavicular osteoarthritis with | | hypertrophic changes causing mass effect on supraspinatus tendon at | | musculotendinous junction. | | Rotator Cuff: | | *Supra/Infraspinatus: Moderate supraspinatus and infraspinatus | | tendinosis. Small insertional partial-thickness articular surface tear | | of the anterior portion of the supraspinatus tendon, image 12/series | | 10. There is bursal surface fraying at musculotendinous junction. | | Partial-thickness bursal surface tear of the posterior portion of the | | supraspinatus/anterior portion of infraspinatus at musculotendinous | | junction, measuring approximately 1.2 cm anteroposteriorly, image | | 7/series 9. Probable interstitial extension of the tear with edema at | | musculotendinous junction of the infraspinatus. Small insertional | | partial-thickness concealed interstitial tear of the infraspinatus | | tendon, image 9/series 10. | | *Teres Minor: Normal. | | *Subscapularis: Moderate tendinosis. Insertional high-grade | | partial-thickness articular surface tears. | | Biceps/Rotator Interval: Tear of the long head of the biceps tendon. | | The long head of biceps tendon is not visualized in superior portion of | | the bicipital groove. | | Glenoid Labrum: Superior labrum tear (slap tear) extending to the | | posterior labrum up to 8:00 o'clock position. Small posterior | | paralabral cysts. | | Articular Cartilage: Mild glenohumeral osteoarthritis with surface | | irregularity and partial thickness chondral loss involving humeral head | | and glenoid. Small focal area of full-thickness glenoid chondral loss, | | image 10/series 10. | | Miscellaneous: No enlarged axillary lymph nodes. | | IMPRESSION: | | *Insertional high-grade partial thickness articular surface tear of the | | subscapularis tendon. | | *Partial thickness tear of the supraspinatus and infraspinatus tendon | | as detailed above. | | *Subacromial/subdeltoid bursitis. | | *Advanced acromioclavicular osteoarthritis. | | *Tear of the long head of the biceps tendon. | | *Superior labrum tear (SLAP tear) extending to the posterior labrum up | | to 8:00 o'clock position. | | *Mild glenohumeral osteoarthritis. Small glenohumeral joint effusion. | | *Additional findings as detailed above. | | Signed by: Ryanne Lincoln, Scotty | | Sign Date/Time: 05/18/2019 2:15 PM | + + documented in this encounter Visit Diagnoses + + | Diagnosis | + + | Left shoulder pain, unspecified chronicity | + + documented in this encounter"
--- OUTSIDE RECORDS SUMMARY | ~2019-11-09 | XMS | Encounter Summary ---
Demographics + + + | Address | [address] | | | [place] [address] | + + + | Home Phone | | + + + | Preferred Language | Unknown | + + + | Marital Status | | + + + | Gnosticism Affiliation | 1009 | + + + | Race | Unknown | + + + | Ethnic Group | Unknown | + + + Author + + + | Author | [facility] | | | and [place] | + + + | Organization | [facility] | | | [...] Team Providers + +------+ + | Care Luggage Repairer Name | Role | Phone | + +------+ + PCP | Unavailable | + +------+ + Encounter Details +--------+ + + + + | Date | Type | Department | Care Team | Description | +--------+ + + + + | 11/15/ | Hospital | [facility] | | | | 2008 | Encounter | MED CTR XRAY [address] | | | | | | [place] | | | | | | [place] [address] | | | | | | [phone] | | | +--------+ + + + [...]
--- OUTSIDE RECORDS SUMMARY | ~2019-11-09 | XMS | Encounter Summary ---
Demographics + + + | Address | [address] | | | [place] [address] | + + + | Home Phone | | + + + | Preferred Language | Unknown | + + + | Marital Status | Unmarried Domestic Partner | + + + | Samaritan Affiliation | Unknown | + + + | Race | or | + + + | Ethnic Group | Not or | + + + Author + + + | Author | [facility] | + + + | Organization | [facility] | + [...] Team Providers + +------+ + | Care Maintenance And Engineering Manager Name | Role | Phone | + +------+ + | No Pcp Per Patient | PCP | Unavailable | + +------+ + Encounter Details +--------+ + + + + | Date | Type | Department | Care Team | Description | +--------+ + + + + | 04/15/ | 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 | [place] | Michael Solomon MD | Special screening | | 2011 | | Fertility | [address] | examination for | | | | Consultants at [facility] | [place], [place] | other specified | | | | [address] | [address] | viral diseases; | | | | Mailcode: [id number] | [phone] | Screening | | | | [facility] | | examination for | | | | and Healing, | | venereal disease; | | | | Building | | Fertility testing | | | | Floor [place], [place] | | | | | | [address] | | | | | | [phone] | | | +--------+ + + + [...] LAB | [address] | [place] [address] | | | | Tenth Floor | [...] + + + | [facility] | [address] | [place] [address] | | | LABORATORY | | | [...] [facility] | [facility] | | [place] [address] | REGIONAL | | [place] [address] | LABORATORY | + + + + + + + + | Performing | Address | City/State/Zipcode | Phone Number | | Organization | | | | + + + + + | [facility] | [address] | [place] [address] | | | LABORATORY | | | [...] + + + | [facility] [facility] | [facility] | | [place] [address] [address] [facility] | REGIONAL | | [place] [address] | LABORATORY | + + + + + + + + | Performing | Address | City/State/Zipcode | Phone Number | | Organization | | | | + + + + + | [facility] | [address] | [place] [address] | | | LABORATORY | | | [...] + + | Performing | Address | City/State[facility] | Phone Number | | Organization | | | | + + + + + | [facility] | [address] | [place] [address] | | | PATHOLOGY | [address] [...]
--- OUTSIDE RECORDS SUMMARY | ~2019-11-09 | XMS | Clinical Summary ---
Demographics + + + | Address | [address] | | | [place] [address] | + + + | Home Phone | | + + + | Preferred Language | Unknown | + + + | Marital Status | Single | + + + | Faith Affiliation | 1009 | + + + | Race | Unknown | + + + | Ethnic Group | Unknown | + + + Author + + + | Author | [facility] (Historical as of | | | 06-11-19) | + + + | Organization | [facility] (Historical as of | | | 06-11-19) [...] Team Providers + +------+ + | Care House Father Name | Role | Phone | + [...] | [employer] | ODS | [id number] | | | | | | HEALTH | | | | | | | PLAN | | | | | + +--------+ +------+-------+---------+ | /[place] | YELLOW | [id number] | | | | | PLANS | [...] Self | [birth year] | Home: | [address] | | | al/Fam | | 1975 | [phone] [place] | | | miah | | | [phone] | [phone] | + +--------+ +--------+ + +"
--- OUTSIDE RECORDS SUMMARY | ~2019-11-09 | XMS | Clinical Summary ---
Demographics + + + | Address | [address] | | | [place] [address] | + + + | Home Phone | | + + + | Preferred Language | Unknown | + + + | Marital Status | | + + + | Anabaptist Affiliation | 1009 | + + + | Race | Unknown | + + + | Ethnic Group | Unknown | + + + Author + + + | Author | [facility] | | | and [place] | + + + | Organization | [facility] | | | [...] Team Providers + +------+ + | Care Horse Shoer Name | Role | Phone | + [...]
--- OUTSIDE RECORDS SUMMARY | ~2019-11-09 | XMS | Encounter Summary ---
Demographics + + + | Address | [address] | | | [place] [address] | + + + | Home Phone | | + + + | Preferred Language | Unknown | + + + | Marital Status | | + + + | Synagogue Affiliation | 1009 | + + + | Race | Unknown | + + + | Ethnic Group | Unknown | + + + Author + + + | Author | [facility] | | | and [place] | + + + | Organization | [facility] | | | and [...] Team Providers + +------+ + | Care Ambulance Attendant Name | Role | Phone | + +------+ + PCP | Unavailable | + +------+ + Encounter Details +--------+ + + + + | Date | Type | Department | Care Team | Description | +--------+ + + + + | 05/17/ | Hospital | [facility] | Conversion | Left shoulder pain, | | 2018 | Encounter | [facility] | Transaction, | unspecified | | | | [address] | Provider Unknown | chronicity | | | | [facility] | | | | | | [address] | (Fax) | | | | | [phone] | | | +--------+ + + + [...]
--- OUTSIDE RECORDS SUMMARY | ~2019-11-09 | XMS | Encounter Summary ---
Demographics + + + | Address | [address] | | | [place] [address] | + + + | Home Phone | | + + + | Preferred Language | Unknown | + + + | Marital Status | | + + + | Gnosticist Affiliation | 1009 | + + + | Race | Unknown | + + + | Ethnic Group | Unknown | + + + Author + + + | Author | [facility] | | | and [place] | + + + | Organization | [facility] | | | [...] Team Providers + +------+ + | Care Grain Receiver Name | Role | Phone | + +------+ + PCP | Unavailable | + +------+ + Encounter Details +--------+ + + + + | Date | Type | Department | Care Team | Description | +--------+ + + + + | 06/23/ | Hospital | [facility] | Franklin Garcia MD | | | 2010 | Encounter | MED CTR GENERIC OP | [address] [facility] | | | | | CONV DEPT [address] | [address] [place], | | | | | [place], | [place] [address] | | | | | [place] [address] | [phone] | | | | | [phone] | | | +--------+ + + + [...] + | [address] | [address] | [place], [place] | [phone] | | [facility] | | [address] | | | - LABORATORY | | | | + + + + + | [facility] | [address] | [place], [place] | | | [facility] | | [address] | | | - LABORATORY | | | | + + + + + documented in this encounter Visit Diagnoses Not on filedocumented in this encounter"
[~2019-11-09 18:21] MED LIST changes: +HYDROCHLOROTHIA25 MG PO; +NORCO 10-325 T1 EACH PO; +TRAZODONE HCL100 MG PO; +ULTRAM50 MG PO; +VENTOLIN HFA18 GM INH; +VITAMIN D50000 UNI1 PO
--- OUTSIDE RECORDS SUMMARY | 2019-11-09 18:24 | XMS ---
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 Jerel has no Care Guidelines for this patient. Cindy VISIT COUNT (12 MO.) 1 RUMA Campbell TOTAL 1 NOTE: Visits indicate total known visits. ED/C VISIT TRACKING (12 MO.) 11/09/2019 18:21 RUMA [place] TYPE: Emergency COMPLAINT: - FOOT INJURY INPATIENT VISIT TRACKING (12 MO.) No inpatient visits to display in this time frame [email or web address]
== END 2019-11-09 18:26 | disposition home or self-care (01) ==
LOC: ED 18:21
DX: Z53.21 Procedure and treatment not carried out due to patient leaving prior to being seen by health care provider (principal)